=== PATIENT | male | born 2000 | race Caucasian/White ===

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

== ENCOUNTER 2020-09-16 10:04 | Emergency (ER) | payer OTHER ==
[2020-09-16] MEDS ORDERED: Lidocaine 5% Oint 35.44 GM Tube TOP ONE (10:50)
[2020-09-16] MEDS ORDERED: Sodium Chloride 0.9% 10 ML Syringe FLUSH PRN (10:50)
[2020-09-16 11:19] VITALS: BP 148/88; PULSE 64
[2020-09-16] MEDS ORDERED: Ketorolac 60 MG/2 ML SDV IVPUSH ONE (11:29)
[2020-09-16] MEDS: HYDROmorphone 2 MG/ML SDV IVPUSH ONE ×2 (11:34→12:05)
[2020-09-16] MEDS: HYDROmorphone 4 MG/ML Syringe SUBCUT ONE (12:13)
[2020-09-16] MEDS ORDERED: Lactated Ringers 1,000 ML IV SCH (12:30)
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
[2020-09-17] MEDS: HYDROmorphone 4 MG/ML Syringe SUBCUT ONE (14:25)
== END 2020-09-16 13:40 | disposition home or self-care (01) ==
LOC: LB.ED 10:04
DX: T59.891A Toxic effect of other specified gases, fumes and vapors, accidental (unintentional), initial encounter (principal); T20 Burn and corrosion of head, face, and neck; T20.66XA Corrosion of second degree of forehead and cheek, initial encounter
CPT/HCPCS: 99283-25; 99284; A9270-GY; J1170; J1885; J7120